=== PATIENT | male | born 1980 | race African-American/Black ===

== ENCOUNTER 2021-11-11 19:32 | Emergency (ER) | payer MEDICARE, SELFPAY ==
--- NOTE | 2021-11-11 19:40 | ED.SKABFB ---
HPI - Skin/Abscess/Foreign Bdy General Chief complaint: Skin/Abscess/Foreign Body Stated complaint: boil inner thigh Time Seen by Provider: 11/11/21 19:33 Source: patient Mode of arrival: ambulatory Limitations: no limitations History of Present Illness HPI narrative: Mr. Pace is a 41-year-old male patient presenting to the clinic today with complaints of a boil to his right groin. He reports he first noticed this approximately 2 days ago. It started draining this morning. He reports discomfort to the right groin with pain and swelling. He denies any fever or chills Related Data Home Medications Medication Instructions Recorded Confirmed insulin glargine 100 unit/mL (3 70 unit subcut BID 12/20/18 11/11/21 mL) subcutaneous pen (Basaglar KwikPen U-100 Insulin) loratadine 10 mg tablet (Allergy 10 mg PO DAILY 12/20/18 11/11/21 Relief (loratadine)) losartan 50 mg-hydrochlorothiazide 1 tablet PO DAILY 12/20/18 11/11/21 12.5 mg tablet metformin 1,000 mg tablet 1,000 mg PO BID 12/20/18 11/11/21 potassium chloride 10 mEq 10 meq PO DAILY 11/11/21 11/11/21 capsule,extended release Allergies Allergy/AdvReac Type Severity Reaction Status Date / Time Honey Bee Allergy Severe Anaphylaxis Uncoded 11/11/21 19:38 Review of Systems Review of Systems: Pertinent positives per HPI. Patient denies any fever, chills, rash, headache, visual changes, dizziness, cough, runny nose, sore throat, shortness of breath, chest pain, palpitations, nausea, vomiting, diarrhea, constipation, abdominal pain, or any urinary issues. PMFSH Social History Social History Smoking status: Never smoker Alcohol intake: never Substance use type: does not use Additional occupation/education comments: [employer] driver Gender identity (if verbalized by the patient): Male Comments At the time of my signature, I reviewed and agree with the nursing past medical, surgical, social, and family history. There is no relevant family history pertinent to the patient complaint. Exam Narrative: General: Well-developed, well nourished, in no apparent distress Head: Normocephalic, atraumatic. Cardio: Regular rate and rhythm, s1 and s2 normal, no murmur appreciated. Resp: Clear to auscultation bilaterally, no rhonchi, rales, wheezing or rubs. Integumentary: [place], warm, and dry, intact without lesion, 3 cm x 2 cm induration abscess right groin/pelvic wall. Yellowish drainage noted. Area is nonfluctuant Course Course Emergency Course: Portions of this record may have been created with voice recognition software. Level of Care: Express Care Visit Vital Signs Vital signs: Vital signs reviewed MDM - Skin/Abscess/Foreign Bdy MDM Narrative Medical decision making narrative: At the time of visit patient is resting comfortably on the exam table. Patient has abscess to the right groin that is already draining and is nonfluctuant. I will place him on a prescription for doxycycline as Bactrim DS will interact with his medications he is already taking. Supportive measures were discussed with the patient he voiced understanding of discharge instructions and agrees to treatment plan. Differential Diagnosis Differential diagnosis: Likely abscess of skin or subcutaneous tissue Discharge Plan Discharge Clinical Impression: Abscess of groin, right Patient Disposition: Home, Self-Care Condition: Stable Instructions: Antibiotic Form, Abscess (ED) Additional Instructions: Apply warm compress to the affected area for 15 minutes at a time every 1-2 hours-to help facilitate drainage Take doxycycline as prescribed May take Tylenol/Motrin as needed for pain or fever Follow-up with your PCP in 3 to 5 days if symptoms persist or sooner if they worsen Prescriptions: New doxycycline hyclate 100 mg capsule 100 mg PO BID 10 Days Qty: 20 0RF No Action potassium chloride 10 m
[2021-11-11 19:43] VITALS: BP 149/88; PULSE 119; RESP 16; TEMP 36.4; O2SAT 98
== END 2021-11-11 19:50 | disposition home or self-care (01) ==
PROVIDERS: Emergency Provider Nurse Practitioner Family
DX: L02.214 Cutaneous abscess of groin (principal); I10 Essential (primary) hypertension; E11.9 Type 2 diabetes mellitus without complications; Z79.4 Long term (current) use of insulin; Z79.84 Long term (current) use of oral hypoglycemic drugs
CPT/HCPCS: 99213; G0463

== ENCOUNTER 2022-07-23 16:28 | Emergency (ER) | payer MEDICARE, SELFPAY ==
--- NOTE | 2022-07-23 16:30 | ED.SKABFB ---
HPI - Skin/Abscess/Foreign Bdy General Chief complaint: Skin/Abscess/Foreign Body Stated complaint: Rash Time Seen by Provider: 07/23/22 16:30 Source: patient Mode of arrival: ambulatory Limitations: no limitations History of Present Illness HPI narrative: Patient is a 41-year-old male that presents with itching to upper extremities and back. Patient states he breaks out in hives and they self resolved. Patient has been taking Claritin the last 3 days along with Benadryl at night with no relief. Patient was recently on antibiotics but has not been taking them for the last 3 days due to finishing course. Patient denies any new environmental factors. Denies any shortness of breath. Related Data Home Medications Medication Instructions Recorded Confirmed insulin glargine 100 unit/mL (3 70 unit subcut BID 12/20/18 11/11/21 mL) subcutaneous pen (Basaglar KwikPen U-100 Insulin) metformin 1,000 mg tablet 1,000 mg PO BID 12/20/18 11/11/21 potassium chloride 10 mEq 10 meq PO DAILY 11/11/21 11/11/21 capsule,extended release blood-glucose sensor (Dexcom G6 07/23/22 07/23/22 Sensor device) cephalexin 500 mg capsule mg 07/23/22 empagliflozin 25 mg tablet mg 07/23/22 (Jardiance) gabapentin 300 mg capsule mg 07/23/22 hydroxyzine HCl 25 mg tablet mg 07/23/22 losartan 100 mg tablet mg 07/23/22 metformin 500 mg tablet,extended mg PO 07/23/22 release 24 hr pen needle, diabetic 32 gauge x 07/23/22 07/23/22 sulfamethoxazole 800 tablet 07/23/22 mg-trimethoprim 160 mg tablet tramadol 50 mg tablet mg 07/23/22 Allergies Allergy/AdvReac Type Severity Reaction Status Date / Time Honey Bee Allergy Severe Anaphylaxis Uncoded 07/23/22 16:46 Review of Systems Review of Systems: All systems reviewed & are unremarkable except as noted in HPI and below Constitutional: Constitutional: Denies body ache(s), Denies chills, Denies fatigue, Denies fever(s), Denies headache(s), Denies malaise and Denies weakness Eyes: Eyes: Denies blurry vision, Denies irritation and Denies loss of vision ENT: Denies otalgia, Denies headache(s), Denies nasal discharge, Denies sinus pain and Denies sore throat Cardiovascular: Cardiovascular: Denies chest pain, Denies irregular heart rhythm and Denies dyspnea Respiratory: Respiratory: Denies dyspnea Gastrointestinal: Gastrointestinal: Denies abdominal pain, Denies melena, Denies hematochezia, Denies diarrhea, Denies nausea and Denies vomiting Musculoskeletal: Musculoskeletal: Denies back pain, Denies myalgias and Denies arthralgias Integumentary/Breasts: Skin/Breast: Reports pruritus and Denies rash Neurologic: Denies headache(s), Denies loss of vision and Denies weakness Psychiatric: Psychiatric: Reports no additional psychiatric complaints Endocrine: Endocrine: Denies fatigue PMFSH Social History Social History Smoking status: Never smoker Alcohol intake: never Substance use type: does not use Living arrangements: with family Occupation/Education: occupation 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 There is no relevant family history pertinent to the presenting complaint. Exam Const: General: cooperative, healthy appearing, comfortable, no acute distress and well nourished Nutritional Appearance: well nourished Orientation/consciousness: patient oriented x3 Limitations: no limitations HENMT: Head: normal to inspection, normocephalic and atraumatic Ears: hearing grossly normal bilaterally and external ears normal Face/Nose/Sinus: Normal external nose present, normal facial exam and face symmetric Face and sinus: normal facial exam and face symmetric Mouth: Yes lip normal Eyes: General: appearance normal, both eyes and all
[2022-07-23 16:41] VITALS: BP 154/108; PULSE 99; RESP 12; TEMP 36.8; O2SAT 100
[2022-07-23 18:04] VITALS: BP 128/98; PULSE 99; O2SAT 100
== END 2022-07-23 18:15 | disposition home or self-care (01) ==
PROVIDERS: Emergency Provider Nurse Practitioner Family
DX: L29.9 Pruritus, unspecified (principal); T78.40XA Allergy, unspecified, initial encounter; I10 Essential (primary) hypertension; E11.9 Type 2 diabetes mellitus without complications
CPT/HCPCS: 99213; G0463

== ENCOUNTER 2022-09-01 15:52 | Outpatient (CLI) | payer MEDICARE, SELFPAY ==
--- NOTE | ~2022-09-01 | XR_ITS ---
EXAMINATION: [id number] DATE: 09/01/2022 16:21 INDICATION: Lesion of plantar nerve bilateral feet. TECHNIQUE: 3 views of right foot weightbearing were obtained. COMPARISON: None. FINDINGS: There is mild hallux valgus. No fracture. There is mild osteoarthritis of first metatarsoph alangeal joint and some of the interphalangeal joints and midfoot joints. There is an enthesophyte at posterior aspect of calcaneal tuberosity. IMPRESSION: 1. Mild hallux valgus. 2. Mild polyarticular osteoarthritis. Reviewed, dictated and finalized at location A.
--- NOTE | ~2022-09-01 | XR_ITS ---
EXAMINATION: [id number] DATE: 09/01/2022 16:21 INDICATION: Lesion of plantar nerve of bilateral feet. TECHNIQUE: 3 views of left foot with weightbearing were obtained. COMPARISON: None. FINDINGS: Bone alignment is normal. No fracture. There is mild osteoarthritis of first metatarsophala ngeal joint. There is an enthesophyte at posterior aspect of calcaneal tuberosity. IMPRESSION: 1. Mild osteoarthritis of first metatarsophalangeal joint. Reviewed, dictated and finalized at location A.
== END 2022-09-01 15:53 | disposition home or self-care (01) ==
LOC: ANHIMG 15:55
DX: G57.63 Lesion of plantar nerve, bilateral lower limbs (principal); M20.11 Hallux valgus (acquired), right foot; M15.9 Polyosteoarthritis, unspecified
CPT/HCPCS: 73630